=== PATIENT | male | born 1970 | race Hispanic/Latino ===

== ENCOUNTER 2020-01-19 12:34 | Outpatient (NON) | payer OTHER, SELFPAY ==
[2020-01-19 22:30] LABS: SARS-CoV-2 RNA PCR Negative
== END 2020-01-19 12:35 ==
PROVIDERS: PCP Family Medicine; Visit Provider Family Medicine
DX: Z20.828 Contact with and (suspected) exposure to other viral communicable diseases (principal); R50.9 Fever, unspecified
CPT/HCPCS: 87635; C9803; U0003

== ENCOUNTER 2020-02-16 06:54 | Outpatient (NON) | payer OTHER, SELFPAY ==
[2020-02-16 19:25] LABS: SARS-CoV-2 RNA PCR Negative
== END 2020-02-16 06:55 ==
LOC: ANHCOVIDDT 06:56
PROVIDERS: PCP Family Medicine; Visit Provider Nurse Practitioner
DX: Z20.828 Contact with and (suspected) exposure to other viral communicable diseases (principal); R50.9 Fever, unspecified
CPT/HCPCS: 87635; C9803; U0003

== ENCOUNTER 2020-05-31 15:12 | Outpatient (CLI) | payer OTHER, SELFPAY | END 2020-05-31 15:13 | disposition home or self-care (01) | LOC: ANHCOVIDVC 15:12 | PROVIDERS: PCP Family Medicine | DX: Z23 Encounter for immunization (principal) | CPT/HCPCS: 0001A; 91300 ==

== ENCOUNTER 2020-06-21 15:09 | Outpatient (CLI) | payer OTHER, SELFPAY | END 2020-06-21 15:10 | disposition home or self-care (01) | LOC: ANHCOVIDVC 15:09 | PROVIDERS: PCP Family Medicine | DX: Z23 Encounter for immunization (principal) | CPT/HCPCS: 0002A; 91300 ==

== ENCOUNTER 2021-01-09 07:59 | Outpatient (CLI) | payer OTHER, SELFPAY ==
--- NOTE | 2021-01-21 14:19 | WPDSLEEPSTUD ---
Sleep Study Date of Study: 01/09/21 <Luci Fuentes DO - Last Filed: 01/21/21 15:54> Ordering Provider: Corinna Pollard MD <Luci Fuentes DO - Last Filed: 01/21/21 15:54> Interpreting Physician: Luci Fuentes DO <Luci Fuentes DO - Last Filed: 01/21/21 15:54> Sleep Study Type: Polysomnogram <Luci Fuentes DO - Last Filed: 01/21/21 15:54> Height: 1.8 m <Luci Fuentes DO - Last Filed: 01/21/21 15:54> Weight: 206.385 kg <Luci Fuentes DO - Last Filed: 01/21/21 15:54> Body Mass Index: 63.4 <Luci Fuentes DO - Last Filed: 01/21/21 15:54> Neck Circumference (inches): 23.5 <Luci Fuentes DO - Last Filed: 01/21/21 15:54> Totz: 7 <Luci Fuentes DO - Last Filed: 01/21/21 15:54> Reason for Sleep Study The patient has difficulty staying asleep. He was diagnosed with sleep apnea in the past and had a CPAP. <Luci Fuentes DO - Last Filed: 01/21/21 15:54> Sleep History The patient is a 50 y/o male with HTN, asthma, chronic venous insufficiency of lower extremity, and morbid obesity that had a PSG ordered by his PCP due to history of ALVERTO and sleep disturbances. The patient was diagnosed with ALVERTO in the past and has not used a CPAP in over 5 years. The patient states that he can only sleep if he is sitting up in a chair. The patient rarely awakens from sleep short of breath. He never awakens at night with heartburn, belching or cough. He frequently snores and it is loud enough that others complain. He [place] has trouble sleeping when he has a cold. He denies suddenly waking up gasping for air throughout the night. He rarely has breathing problems at night observed by others. He occasionally falls asleep during the day but never while driving. He denies sleep paralysis, cataplexy and hypnagogic / hypnopompic hallucinations. He occasionally has nightmares. He rarely feels sad or depressed but occasionally feels anxious. He occasionally notices parts of his body jerk. He denies kicking throughout the night. He rarely experiences crawling and aching feelings in his legs. He denies leg pain throughout night. He denies grinding his teeth during sleep and awakening with jaw pain in the morning. He denies being bothered by pain during the day and being awakened by pain during the night. He denies waking up feeling stiff in the morning with sore and achy muscles. He goes to bed at 11:00 p.m. on the weekdays and at midnight on the weekends. It takes him 15 minutes to fall asleep. He will wake 1-2 times per night. when he wakes up, he will use the restroom, meditate or do exercises. He will wake up at 5:45 a.m. on the weekdays and 7:00 a.m. on the weekends. He typically gets 7-8 hours of sleep. He will stay in bed for 20 minutes after waking up in the morning. He currently lives with his girlfriend. He does not drink any caffeinated beverages within 2 hours of going to bed. He does not engage in physical exercise before bedtime. He will read and watch television before falling asleep. He will not take any naps in the afternoon or the evening. He will drink 2-3 caffeinated beverages per day. He will drink 1-2 alcoholic beverages per day. He denies tobacco or recreational drug use. <Luci Fuentes DO - Last Filed: 01/21/21 15:54> FOR[facility], [facility] Past Medical History Medical History: Medical History Asthma Chronic venous insufficiency of lower extremity Essential (primary) hypertension Morbid obesity ALVERTO (obstructive sleep apnea) Skin abscess <Luci Fuentes DO - Last Filed: 01/21/21 15:54> Surgical History Surgical History: Surgical History History of foot surgery 2011 - left foot abnormality correction History of vasectomy 2004 <Luci Fuentes DO - Last
[2021-01-21 14:31] VITALS: BMI 63.4
== END 2021-01-10 10:00 | disposition home or self-care (01) ==
LOC: ANHCSM 07:59
PROVIDERS: PCP Family Medicine; Visit Provider Family Medicine
DX: G47.33 Obstructive sleep apnea (adult) (pediatric) (principal)
CPT/HCPCS: 95810